=== PATIENT | female | born 1980 | race Caucasian/White ===

== ENCOUNTER 2018-02-14 09:34 | Emergency (ER) | payer BC ==
--- NOTE | 2018-02-14 10:14 | ED ---
Lower Extremity - HPI Summary HPI Summary: This patient is a 37 year old F presenting to [facility] with a chief complaint of right leg pain since two days ago. The patient initially thought she had a cramp in her right foot, then last night the pain radiated up her calf and to the rest of her leg. The patient tried ice and Tylenol without relief. The patient is 33 weeks . This is the patients third , with her first two successful via -section. The patient rates her pain 7/10 in severity. Patient can ambulate on the leg. - History of Current Complaint Chief Complaint: EDExtremityLower Stated Complaint: SWELLING AND PAIN IN RT EXTREMITY Time Seen by Provider: 02/14/18 09:50 Hx Obtained From: Patient Severity Initially: Moderate Severity Currently: Moderate Pain Intensity: 7 Pain Scale Used: 0-10 Numeric Location: Radiates To - From right foot to upper right leg - Allergies/Home Medications Allergies/Adverse Reactions: Allergies Allergy/AdvReac Type Severity Reaction Status Date / Time amoxicillin [From Augmentin] Allergy Unknown Verified 02/14/18 09:41 Reaction Details clavulanic acid Allergy Unknown Verified 02/14/18 09:41 [From Augmentin] Reaction Details environmental Allergy Unknown Uncoded 03/07/16 07:27 Reaction Details PMH/Surg Hx/FS Hx/Imm Hx Endocrine/Hematology History: Denies: Hx Diabetes, Hx Thyroid Disease Cardiovascular History: Denies: Hx Hypertension Respiratory History: Denies: Hx Asthma History: Denies: Hx Kidney Infection, Other Problems/Disorders Sensory History: Reports: Hx Contacts or Glasses - CONTACTS- INSTRUCTS GIVEN Denies: Hx Hearing Aid Opthamlomology History: Reports: Hx Contacts or Glasses - CONTACTS- INSTRUCTS GIVEN Psychiatric History: Reports: Hx Anxiety - ON MEDICATION FOR, Hx Depression - ON MEDICATION FOR Denies: Other Psychiatric Issues/Disorders - Surgical History Surgery Procedure, Year, and Place: [id number] Hx Anesthesia Reactions: No Infectious Disease History: No Infectious Disease History: Denies: Traveled Outside the [place] in Last 30 Days - Family History Known Family History: Negative: Cardiac Disease, Diabetes - Social History Alcohol Use: Weekly Alcohol Amount: 4 PER WEEK Substance Use Type: Reports: None Smoking Status (MU): Former Smoker Type: Cigarettes Amount Used/How Often: 1/2 PPDX 10 YEARS Have You Smoked in the Last Year: No Review of Systems Negative: Fever Positive: Other - Pain in right foot radiating to upper right leg. All Other Systems Reviewed And Are Negative: Yes Physical Exam - Summary Physical Exam Summary: VITAL SIGNS: Reviewed. GENERAL: Patient is a well-developed and nourished FEMALE who is lying comfortable in the stretcher. Patient is not in any acute respiratory distress. HEAD AND FACE: No signs of trauma. No ecchymosis, hematomas or skull depressions. No sinus tenderness. EYES: PERRLA, EOMI x 2, No injected conjunctiva, no nystagmus. EARS: Hearing grossly intact. Ear canals and tympanic membranes are within normal limits. MOUTH: Oropharynx within normal limits. NECK: Supple, trachea is midline, no adenopathy, no JVD, no carotid bruit, no c- spine tenderness, neck with full ROM. CHEST: Symmetric, no tenderness at palpation LUNGS: Clear to auscultation bilaterally. No wheezing or crackles. CVS: Regular rate and rhythm, S1 and S2 present, no murmurs or gallops appreciated. ABDOMEN: Soft, non-tender. Abdomen distended secondary to . No rebound no guarding, and no masses palpated. Bowel sounds are normal. EXTREMITIES: FROM in all major joints, no edema, no cyanosis or clubbing. Right calf tenderness, positive Homans sign. NEURO: Alert and oriented x 3. No acute neurological deficits. Speech is normal and follows commands. SKIN: Dry and warm Triage Information Reviewed: Yes Vital Signs On Initial Exam: Initial Vitals Temp Pulse Resp BP Pulse Ox 97.3 F 82 16 115/54 100 02/14/18 09:42 02/14/18 09:42 02/14/18 09:42 02/14/18 09:42 02/14/18 09:42 Vital Signs Reviewed: Yes Diagnostics - Vital Signs Vital Signs Temp Pulse Resp BP Pulse Ox 02/14/18 09:42 97.3 F 82 16 115/54 100 - Laboratory Result Diagrams: 02/14/18 10:14 02/14/18 10:14 Lab Statement: Any lab studies that have been ordered have been reviewed, and results considered in the medical decision making process. - Ultrasound No standard instances Ultrasound Interpretation: No Acute Changes Ultrasound Interpretation Completed By: Radiologist - Venous Doppler Study: No evidence of Deep Vein Thrombosis identified. ED Provider has reviewed this report. Re-Evaluation - Re-Evaluation First Eval Re-Evaluation Time: 11:11 Change: Unchanged - Discussed results and plan for discharge with patient. Lower Extremity Course/Dx - Course Assessment/Plan: Patient is a 37-year-old female who Is 33 weeks , presents to the emergency department with chief complaint of having right lower extremity pain. Patient reports that todays ago she had a charley horse in the right lower extremity and since then the patient is having pain from the right ankle to the right calf. In the physical exam she has a positive Homans sign. Blood work without any significant abnormality except for glucose 113 and CRP of 9.3. Right lower 7 extremity ultrasound impression: No evidence of deep venous thrombosis is identified. At this time I discussed my physical exam , findings and test results with the patient and the need to follow-up with primary care physician. The patient is hemodynamically stable alert and oriented 3. I discussed all the findings and test results with the patient. Patient was instructed to return to the emergency room immediately if any of the symptoms return or worsens. Plan of care was discussed with the patient and understands and agrees. All questions were answered at patient satisfaction. There were no further complaints or concerns. Lung exam before discharge: CTA B /L. Good air exchange. No wheezing or crackles heard. CVS: S1 and S2 present. No murmurs appreciated. Patient is alert and oriented x 3. Patient is hemodynamically stable. Patient will be discharged home with follow up PCP in the next 2-3 days. Before discharge the patient was complaining of some numbness in the right foot. I ambulated the patient and she doesn't appear to have any drop foot she has a good steady walk. She denies any back pain, denies any neck pain and a repeat neurological exam is within normal limits no acute focal neurological deficits. After I ambulated the patient she reports that the numbness resolved. At this time the patient will be discharged home with follow-up with primary care physician. She was given recommendations to return to the emergency department immediately if the numbness returns, or if she has any drop foot or any back pain or any other symptom. She understands and agrees. - Diagnoses Differential Diagnosis/HQI/PQRI: Positive: Arthritis, Bursitis, Cellulitis, DVT , Sprain, Strain Provider Diagnoses: Leg pain Discharge - Sign-Out/Discharge Documenting (check all that apply): Patient Departure - Discharge - Discharge Plan Condition: Stable Disposition: HOME Patient Education Materials: Leg Pain (ED) Referrals: Indigo Zepeda NP [Primary Care Provider] - Additional Instructions: Return to ED for any worsening or new symptoms. - Billing Disposition and Condition Condition: STABLE Disposition: Home - Attestation Statements Document Initiated by Scribe: Yes Documenting Scribe: Garcia Gomes Provider For Whom Emilyibe is Documenting (Include Credential): Nick Le MD Scribe Attestation: Garcia Jauregui, scribed for Nick Le MD on 02/14/18 at 1150. Scribe Documentation Reviewed: Yes Provider Attestation: The documentation as recorded by the Garcia palma accurately reflects the service I personally performed and the decisions made by Nick cohen MD
[2018-02-14 10:23] LABS: ABS Basophils 0 10^3/ul (0-0.2); ABS Eosinophils 0.1 10^3/ul (0-0.6); ABS Lymphocytes 2.1 10^3/ul (1.0-4.8); ABS Monocytes 0.8 10^3/ul (0-0.8); ABS Neutrophils 4.6 10^3/ul (1.5-7.7); ABS Nucleated RBC 0 10^3/ul; Eosinophil % 1.5 % (0-6); Hematocrit 35 % (35-47); Hemoglobin 12.2 g/dl (12.0-16.0); Lymphocyte % 27.8 % (25-47); Mean Corpuscular HGB Conc 35 g/dl (31-36); Mean Corpuscular Hemoglobin 32 pg (27-31); Mean Corpuscular Volume 93 fL (80-97); Mean Platelet Volume 7.3 um3 (7.4-10.4); Nucleated Red Blood Cells % 0.1; Platelet Count 239 10^3/ul (150-450); Red Blood Count 3.78 10^6/ul (4.00-5.40); Red Cell Distribution Width 12 % (10.5-15); White Blood Count 7.7 10^3/ul (3.5-10.8)
[2018-02-14 10:28] LABS: INR 0.82 (0.77-1.02)
[2018-02-14 10:37] LABS: EGFR Non-African American 156.8 (>60)
--- NOTE | 2018-02-14 10:57 | RAD ---
Indication: Right lower extremity pain. Duplex Doppler sonography of the deep venous system of the right lower extremity deep venous system was performed. Bilaterally the common femoral veins appear patent and compressible. Right proximal greater saphenous vein, proximal deep femoral vein, femoral vein, popliteal vein, posterior tibial veins and peroneal veins appear patent and compressible. IMPRESSION: NO EVIDENCE OF DEEP VENOUS THROMBOSIS IS IDENTIFIED.
[2018-02-14 11:32] VITALS: BP 119/59
== END 2018-02-14 11:31 | disposition home or self-care (01) ==
LOC: ED 09:34
DX: O26.893 Other specified pregnancy related conditions, third trimester (principal); M79.604 Pain in right leg; Z3A.33 33 weeks gestation of pregnancy; F41.9 Anxiety disorder, unspecified; F32.9 Major depressive disorder, single episode, unspecified; Z88.1 Allergy status to other antibiotic agents; Z88.0 Allergy status to penicillin; Z87.891 Personal history of nicotine dependence
CPT/HCPCS: 36415; 80053; 85025; 85610; 86140; 99282

== ENCOUNTER 2018-04-02 05:55 | Inpatient (IN) | payer BC ==
[~2018-04-02 05:55] MED LIST: Buffered Lidocaine 0.9% SYRIN* 5 ML/SYR SYRINGE INTRADERM ONE
[2018-04-02] MEDS ORDERED: Sodium Citrate/Citric Acid* 15 ML UDC PO ONE (06:00)
[2018-04-02] MEDS ORDERED: ceFAZolin 2 GM PREMIX in ORs 0 GM/0 ML BAG IVPB ONE (06:09)
[2018-04-02] MEDS ORDERED: Sodium Citrate/Citric Acid* 15 ML UDC ONE (06:09)
[2018-04-02] MEDS ORDERED: ceFOXitin 2 GM IVPREMIX* 2 GM/50 ML BAG ONE (06:13)
[2018-04-02] MEDS ORDERED: Bupivacaine-MPF SPINAL* 7.5 MG/ML - 2ML AMP ONE (07:35)
[2018-04-02] MEDS ORDERED: Morphine PF AMP (0.5MG/ML)* 5 MG/10 ML AMP ONE (07:35)
[2018-04-02] MEDS ORDERED: Ketorolac INJ* 30 MG/ML 1 ML VIAL ONE (07:36)
[2018-04-02] MEDS ORDERED: Ondansetron INJ* 2 MG/ML VIAL ONE (07:36)
[2018-04-02] MEDS ORDERED: Phenylephrine INJ* 10 MG/ML 1 ML VIAL (10 MG) ONE (07:36)
[2018-04-02] MEDS ORDERED: Scopolamine 1.5 mg* PATCH ONE (07:36)
[2018-04-02] MEDS ORDERED: OXYTOCIN* 10 UNITS/ML 1 ML VIAL ONE (07:36)
[2018-04-02] MEDS ORDERED: Lidocaine 2% PF * 5 ML VIAL ONE (07:36)
[2018-04-02] MEDS ORDERED: Naloxone* 0.4 MG/ML 1 ML VIAL IV PRN ×2 (08:30→08:32)
[2018-04-02] MEDS ORDERED: Ondansetron INJ* 2 MG/ML VIAL IV PRN ×2 (08:30→08:32)
[2018-04-02] MEDS ORDERED: fentaNYL* 50 MCG/ML 2 ML VIAL (100 MCG VIAL) IV PRN (08:30)
[2018-04-02] MEDS ORDERED: Scopolamine 1.5 mg* PATCH TRANSDERM PRN (08:30)
[2018-04-02] MEDS ORDERED: diPHENhydraMINE IV* 50 MG/ML 1 ml VIAL (BENADRYL) IV PRN (08:32)
[2018-04-02] MEDS ORDERED: oxyCODONE/Acetamin 5/325 MG* TAB PO PRN ×4 (08:32→09:32)
[2018-04-02] MEDS ORDERED: Nalbuphine* 10 MG/ML 1 ML VIAL IV PRN (08:32)
[2018-04-02] MEDS ORDERED: Dibucaine 1% 28.35 GM TUBE PR PRN (09:32)
[2018-04-02] MEDS ORDERED: Glycerin ADULT SUPP PR PRN (09:32)
[2018-04-02] MEDS ORDERED: Witch Hazel PAD* JAR TOPICAL PRN (09:32)
[2018-04-02] MEDS ORDERED: Oxytocin in LR* 20 UNITS/1,000 ML BAG IVPB SCH (10:00)
[2018-04-02] MEDS: Acetaminophen TAB* 325 MG PO PRN ×3 (13:03→21:39)
[2018-04-02] MEDS: Simethicone TAB* 80 MG TAB.CHEW PO SCH ×3 (13:04→21:39)
[2018-04-02] MEDS: Docusate CAP* 100 MG PO SCH ×2 (13:04→21:39)
[2018-04-02] MEDS: Ketorolac INJ* 30 MG/ML 1 ML VIAL IV PRN ×2 (15:30→21:39)
[2018-04-03] MEDS: Acetaminophen TAB* 325 MG PO PRN ×4 (01:49→15:24)
--- NOTE | 2018-04-03 03:12 | OP ---
DATE OF OPERATION: 04/02/18 - ROOM #116 DATE OF : 80 SURGEON: More Nichols MD ASSISTANTS: 1. Dr. Gage. 2. Paola Lindquist CNM. ANESTHESIOLOGIST: Dr. Oliver. ANESTHESIA: Spinal. PRE-OP DIAGNOSIS: Intrauterine , desires repeat section, desires permanent sterility, 39 weeks gestation. POST-OP DIAGNOSIS: Intrauterine , desires repeat section, desires permanent sterility, 39 weeks gestation, delivered. OPERATIVE PROCEDURE: Repeat low transverse section and bilateral tubal ligation. ESTIMATED BLOOD LOSS: 600 cc. URINE OUTPUT: 100 cc of clear yellow urine. FLUIDS: 2300 cc of crystalloid. FINDINGS: Revealed a vertex female infant. No nuchal cord. No meconium. Apgars 9 at 1 minute and 9 at 5 minutes. Weight was 6 pounds 10 ounces. Normal -appearing tubes and ovaries bilaterally. Normal uterine cavity. Normal- appearing placenta. Three-vessel cord manually extracted, intact. COMPLICATIONS: None apparent. DISPOSITION: Stable to recovery room. DESCRIPTION OF PROCEDURE: The patient was placed in dorsal lithotomy position. The abdomen was prepped and draped in a sterile standard fashion. Anesthesia was tested to appropriate level. An incision was made through prior incision with scalpel. This was carried down through the fascia. The fascia was scored in the midline and extended laterally and superiorly with Plascencia scissors. Fascia was from the rectus muscle both superiorly and inferiorly with blunt and sharp dissection. The peritoneum was then entered bluntly. The peritoneal incision was extended bluntly. The bladder blade was inserted. Lower uterine segment was identified, tented up with an Allis. Incision was made with the scalpel down to membranes. The incision was extended bluntly and superiorly. Amniotomy was created for clear fluid. The infant's head was delivered vertex. No nuchal cord was noted. Anterior and posterior shoulders delivered. Baby was vigorous, spontaneous, and crying at delivery. Cord was allowed to pulse for greater than a minute. Cord was then clamped and then cut , and was handed off to awaiting assembler erector. Appropriate cord blood was obtained. Placenta was then manually extracted, noted to be intact 3- vessel cord with normal appearance. The uterus was exteriorized, wrapped in warm , moist laparotomy sponge. The uterine incision was explored and noted to be free of any membranes. The uterine incision itself was then reapproximated using 0 Vicryl x2, first layer running locked, second layer running imbricated. The tubes were noted to have a normal appearance as well as ovaries. The left tube was approached first, clamped. The distal third of the tube was clamped across the mesosalpinx with a Maggie and then ligated with free tie 0 Vicryl and suture ligated in a Mónica fashion with 2-0 Vicryl. The distal fimbria and distal third of the tube was then excised and handed off as specimen. Hemostasis was noted. This process was first done on the left and then repeated on the right for complete transection and removal of the distal fimbria and both right and left fallopian tubes. The uterus was returned intraabdominally. Colic gutters were lavaged. Both tubal ligation sites were visualized and noted to be hemostatic. The peritoneum was then clamped with Maggie and the peritoneum was then reapproximated using 3-0 Vicryl in a running fashion after documentation of hemostasis both at the tubal ligation site and hysterotomy site. After closure of the peritoneum, the subfascial area was visualized and hemostasis was assured. The fascia was reapproximated using 0 Vicryl x2 in a running fashion. A Campers fascia stitch was placed using 3-0 Vicryl in interrupted fashion. The skin was then reapproximated using 4-0 Monocryl in a subcuticular fashion. Mastisol and Steri's were applied. All sponge, instrument, and blade counts were correct throughout the case. The patient tolerated the procedure well and went to recovery room in stable condition. [id number]/[facility] #: [id number] [facility]ITALDean
[2018-04-03] MEDS: Ketorolac INJ* 30 MG/ML 1 ML VIAL IV PRN (03:33)
[2018-04-03 07:11] LABS: ABS Basophils 0 10^3/ul (0-0.2); ABS Eosinophils 0.2 10^3/ul (0-0.6); ABS Lymphocytes 1.9 10^3/ul (1.0-4.8); ABS Monocytes 0.9 10^3/ul (0-0.8); ABS Neutrophils 8.1 10^3/ul (1.5-7.7); ABS Nucleated RBC 0 10^3/ul; Eosinophil % 1.7 %; Hematocrit 37 % (35-47); Hemoglobin 12.3 g/dl (12.0-16.0); Lymphocyte % 17.4 %; Mean Corpuscular HGB Conc 33 g/dl (31-36); Mean Corpuscular Hemoglobin 31 pg (27-31); Mean Corpuscular Volume 95 fL (80-97); Mean Platelet Volume 7.7 fL (7.4-10.4); Nucleated Red Blood Cells % 0.1; Platelet Count 204 10^3/ul (150-450); Red Blood Count 3.91 10^6/ul (4.00-5.40); Red Cell Distribution Width 13 % (10.5-15); White Blood Count 11.1 10^3/ul (3.5-10.8)
[2018-04-03] MEDS: Simethicone TAB* 80 MG TAB.CHEW PO SCH ×3 (07:47→18:20)
[2018-04-03] MEDS: Sertraline* 25 MG TAB PO SCH (07:47)
[2018-04-03] MEDS: Docusate CAP* 100 MG PO SCH ×3 (07:47→22:30)
[2018-04-03] MEDS ORDERED: Ferrous Gluconate TAB* 324 MG TAB PO SCH (09:00)
[2018-04-03] MEDS: Ibuprofen TAB* 600 MG PO PRN ×3 (09:51→22:28)
[2018-04-03] MEDS ORDERED: oxyCODONE/Acetamin 5/325 MG* TAB ONE (18:25)
[2018-04-03] MEDS: oxyCODONE/Acetamin 5/325 MG* TAB PO PRN ×2 (18:27→22:29)
[2018-04-04] MEDS: oxyCODONE/Acetamin 5/325 MG* TAB PO PRN ×6 (02:36→22:53)
[2018-04-04] MEDS: Ibuprofen TAB* 600 MG PO PRN ×3 (04:22→16:45)
[2018-04-04] MEDS: Simethicone TAB* 80 MG TAB.CHEW PO SCH ×5 (08:35→21:24)
[2018-04-04] MEDS: Sertraline* 25 MG TAB PO SCH (08:36)
[2018-04-04] MEDS: Docusate CAP* 100 MG PO SCH ×3 (08:36→21:24)
[2018-04-05] MEDS: Ibuprofen TAB* 600 MG PO PRN ×3 (02:56→08:46)
[2018-04-05] MEDS: oxyCODONE/Acetamin 5/325 MG* TAB PO PRN ×2 (02:57→07:08)
[2018-04-05 07:40] VITALS: BP 133/68
[2018-04-05] MEDS ORDERED: Scopolamine PATCH Remove* 1 NOTE MISC PATCH OFF ONE (08:31)
[2018-04-05] MEDS: Simethicone TAB* 80 MG TAB.CHEW PO SCH (08:46)
[2018-04-05] MEDS: Docusate CAP* 100 MG PO SCH (08:46)
[2018-04-05] MEDS: Sertraline* 25 MG TAB PO SCH (08:46)
== END 2018-04-05 11:40 | disposition home or self-care (01) | DRG 540 ==
LOC: MCHOB 05:55
PROVIDERS: ADMIT Obstetrics & Gynecology; ATTEND Obstetrics & Gynecology
PROC: 0UB70ZZ Excision of Bilateral Fallopian Tubes, Open Approach (ICD-10-PCS; 2018-04-02)
PROC: 10D00Z1 Extraction of Products of Conception, Low, Open Approach (ICD-10-PCS; principal; 2018-04-02 07:30)
DX: O34.211 Maternal care for low transverse scar from previous cesarean delivery (principal); O99.344 Other mental disorders complicating childbirth; F32.9 Major depressive disorder, single episode, unspecified; Z3A.39 39 weeks gestation of pregnancy; Z37.0 Single live birth
CPT/HCPCS: 36415; 85025; 88302; A9270-GY; J0690; J0694; J1885; J2405; J2590